=== PATIENT | male | born 1955 | race American Indian/Alaskan Native ===

== ENCOUNTER 2018-07-13 11:58 | Emergency (ER) | payer OTHER ==
[2018-07-13 12:04] VITALS: BP 123/78
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
[2018-07-13 13:10] LABS: Bacteria,Urine 1+ /HPF (Negative); Bilirubin,Urine NEG (Negative); Blood,Urine NEG (Negative); Color,Urine Yellow (Yellow); Hyaline Casts,Urine 3 /LPF; Mucus,Urine FEW /HPF; Protein,Urine <15 mg/dL mg/dL (Negative); Urobilinogen,Urine < 2.0 mg/dL (<2.0)
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
[2018-07-13 15:45] LABS: Hematocrit 32.9 % (35.5-45.6); Hemoglobin 10.9 gm/dl (11.8-15.2); Mean Corpuscular HGB Conc 33 % (32-34); Mean Corpuscular Volume 80 fl (84-94); Platelet Count 897 K/mm3 (140-440); Red Blood Count 4.11 M/mm3 (3.65-5.03); Red Cell Distribution Width 14.9 % (13.2-15.2)
[2018-07-13 15:51] LABS: Alanine Aminotransferase 6 units/L (7-56); BUN/Creatinine Ratio 28; Blood Urea Nitrogen 34 mg/dL (9-20); Calcium 10.9 mg/dL (8.4-10.2); Hemolysis Index 2
[2018-07-13] MEDS ORDERED: ZOFRAN IV STA (16:12)
[2018-07-13] MEDS ORDERED: MORPHINE IV STA ×2 (16:12→23:29)
[2018-07-13 16:13] LABS: Erythrocyte Sedimentation Rate 66 mm/Hr (0-20)
--- NOTE | 2018-07-13 18:54 | Cat Scan Report ---
PROCEDURE: CT LUMBAR SPINE WO CON TECHNIQUE: Computerized axial tomography of the lumbar spine was performed from T12 to the sacrum wi thout contrast material. CT DOSE LENGTH PRODUCT: 289.26 mGycm HISTORY: LBP with radiculopathy patient has a lung mass. COMPARISONS: None . FINDINGS: There is dextrocurvature of the lumbar spine. There are numerous foci of decreased density within the vertebra and sacrum most consistent with bony metastases. There is near-complete loss of height of the L4 vertebral body consistent with pathologic compression fracture. There is retropulsion of the posterior wall of the L4 vertebral body into the anterior epi dural space with resulting canal stenosis at this level. Visualization of detail of the contents of the lumbar canal is limited by artifact. There is a large partially necrotic mass involving the left iliac bone and left sacral ala. This appe ars to result in near-complete destruction of the left iliac bone, left sacral ala and left acetabulu m. There is also extension of abnormal soft tissue into the left presacral soft tissues in the region of the sacral plexus and extension of abnormal soft tissue into the left S1, S2 and S3 exit foramen. IMPRESSION: 1. 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 JULIEN Sam was notified of the above findings and advised to make the patient nonambulatory. This document is electronically signed by Ginna Vazquez MD., July 13 2018 02:42:53 PM ET
--- NOTE | 2018-07-13 21:32 | XRay Report ---
PROCEDURE: XR CHEST ROUTINE 2V TECHNIQUE: PA and lateral chest radiographs were obtained. HISTORY: weakness COMPARISONS: None. FINDINGS: Heart: Normal. Mediastinum/Vessels: Normal. Lungs/Pleural space: There is abnormal density in the right lower lobe posteriorly possibility of ma ss versus consolidation right lower lobe considered. Mild volume loss in the right lower lobe is also noted. CT is recommended. There are diffuse reticulonodular densities throughout both lungs. Bony thorax: No acute osseous abnormality. IMPRESSION: Abnormal density in the right lower lobe with volume loss for which CT is warranted. Diff use reticulonodular densities throughout both lungs This document is electronically signed by Kelsy Beth MD., July 13 2018 04:35:06 PM ET
--- NOTE | 2018-07-13 23:21 | Cat Scan Report ---
PROCEDURE: CT CHEST W CON TECHNIQUE: Computerized axial tomography of the chest was performed during the IV injection of iodin ated nonionic contrast. CT DOSE LENGTH PRODUCT: mGycm HISTORY: pain to chest and back abnormal CXR COMPARISONS: None . FINDINGS: There are numerous tiny nodules measuring 2 to 3 mm throughout bilateral lungs. A few 4 mm nodules ar e noted in the left lower lobe. A 6 cm mass lesion is noted involving the right lower lobe which demo nstrates inhomogeneous contrast enhancement and an irregular hypodense component measuring 3.7 x 2.5 cm. Atelectatic changes are noted involving the right lower lobe. There is mild degree loculated righ t pleural effusion. Inhomogeneously enhancing nodular lesions consistent with lymphadenopathy are not ed involving the right hilum measuring up to 1.4 cm. Left atelectasis are within normal limits. A sub carinal lymph node is noted measuring 1.2 cm. Right seventh rib demonstrates an expansile lytic lesio n measuring 2.4 cm. Left eighth rib also demonstrates small expansile lytic lesion measuring 1.3 cm. Multiple lytic lesions are identified involving the thoracic spine largest measuring 2.9 x 1.3 cm inv olving T9 vertebral body which demonstrates disruption of posterior vertebral margin and a soft tissu e component projecting into the spinal canal resulting in mild to moderate degree spinal canal compro mise. There are also lytic and sclerotic lesions involving the sternum. IMPRESSION: A 6 cm mass involving the right lower lobe is suspicious for malignancy. Multiples tiny nodules involving bilateral lungs suspicious for metastatic disease Multiple lytic and sclerotic lesions of the bony skeleton are also suspicious for metastatic disease. Right hilar and subcarinal lymphadenopathy suggestive of metastatic disease This document is electronically signed by Teja Brewster MD., July 13 2018 09:45:49 PM ET
--- NOTE | 2018-07-13 23:21 | Cat Scan Report ---
CT NECK W CON CLINICAL INDICATION: Male, 62 years of age. pain to neck with mass COMPARISON: None available. TECHNIQUE: Contiguous axial images were obtained. This CT exam was performed using one or more of th e following dose reduction techniques: automated exposure control, adjustment of the mA and/or kV acc ording to patient size, or use of iterative reconstruction technique. Additional sagittal and coronal reformatted images were obtained. IV contrast administered per institution protocol. Images are subm itted for interpretation. FINDINGS: There are hypervascular, heterogeneous enhancing masses which appear to be localized the bi lateral parotid spaces and causing widening of the bilateral carotid bifurcations. Mass on the left m easures approximately 5.4 x 4.8 cm in axial dimension and 5.4 cm in craniocaudal dimension. This enca ses the proximal external carotid artery, carotid bifurcation or proximal left internal carotid arter y. On the right, there is a similar mass measuring 6.0 x 3.7 cm in axial dimension and approximately 6.0 cm in craniocaudal dimension. This also partially encases the carotid arteries. Arteries remain p atent. Mild calcified plaque at the left carotid bifurcation. Mild partially calcified plaque at the right carotid bifurcation. No high-grade stenosis. These masses cause narrowing of the upper airway at the level of the palatine tonsils. Vocal cords ar e symmetric. The posterior margin of left upper neck at level 5A, there is a hypervascular nodule measuring 1.0 x 1.0 cm (series 2, image 10). This may reflect exophytic component of the left carotid space mass. Thyroid gland and salivary glands are grossly unremarkable. Paucity of fat limits evaluation. Please see CT of the chest from the same day for further details of the visualized lung apices. Mild- to-moderate changes of the cervical spine. IMPRESSION: 1. There are 2 large hypervascular masses which appear to be centered within the carotid spaces. Thes e cause splaying of the bilateral carotid bifurcations are most concerning for bilateral paragangliom a's. Other neoplastic processes not excluded. 2. The masses cause narrowing of the upper airway. The upper airway does remain patent. 3. There is a hypervascular nodule in the left upper neck at level 5A which may reflect exophytic com ponent of the left carotid space mass. Enlarged hypervascular lymph node is not excluded. This document is electronically signed by Jerzy Brewer DO., July 13 2018 09:38:59 PM ET
== END 2018-07-14 02:01 | disposition other institution (70) ==
LOC: ED 11:58
DX: S32.049A Unspecified fracture of fourth lumbar vertebra, initial encounter for closed fracture (principal); C79.51 Secondary malignant neoplasm of bone; R91.8 Other nonspecific abnormal finding of lung field; J39.8 Other specified diseases of upper respiratory tract; M25.552 Pain in left hip; W18.30XA Fall on same level, unspecified, initial encounter; Y93.89 Activity, other specified; Y92.89 Other specified places as the place of occurrence of the external cause; Y99.8 Other external cause status
CPT/HCPCS: 36415; 70491; 71046; 71260; 72131; 80053; 81001; 85027; 85652; 96374; 96375; 96376; 99285; J2270; J2405; Q9967